=== PATIENT | female | born 1985 | race Caucasian/White ===

== ENCOUNTER 2019-12-12 00:13 | Outpatient (CLI) | payer OTHER, SELFPAY ==
[2019-12-12 18:54] LABS: SARS-CoV-2 RNA PCR Negative
== END 2019-12-12 00:14 | disposition home or self-care (01) ==
LOC: ANHCOVIDDT 00:14
PROVIDERS: Visit Provider Plastic Surgery
DX: Z01.812 Encounter for preprocedural laboratory examination (principal); Z11.59 Encounter for screening for other viral diseases
CPT/HCPCS: 87635; C9803; U0003

== ENCOUNTER 2019-12-12 08:23 | Outpatient (CLI) | payer OTHER, SELFPAY ==
--- NOTE | 2019-12-12 08:26 | ECG_ITS ---
Measurements Intervals [place] Rate: 82 P: -25 [place]: 160 QRS: 8 QRSD: 107 T: 6 QT: 372 QTc: 437 Interpretive Statements SINUS RHYTHM BASELINE ARTIFACT- I, III, AVL, AVF BORDERLINE ECG Electronically Signed On 12-12-2019 8:40:27 CDT by Bar Krishna D.O.
== END 2019-12-12 08:24 | disposition home or self-care (01) ==
LOC: ANHSURGERY 08:26
PROVIDERS: PCP Nurse Practitioner; Visit Provider Plastic Surgery
DX: I10 Essential (primary) hypertension (principal); R94.31 Abnormal electrocardiogram [ECG] [EKG]
CPT/HCPCS: 93005

== ENCOUNTER 2019-12-14 02:07 | Day surgery (SDC) | payer OTHER, SELFPAY ==
[2019-12-06 10:59] VITALS: BMI 39.1
--- NOTE | 2019-12-12 11:53 | HP_ITS ---
DATE OF SERVICE: 12/14/2019 PREOPERATIVE DIAGNOSIS: Ganglion cyst, left dorsal wrist. HISTORY: The patient is 34, patient of Adilene Berumen, Family Nurse Practitioner, who presented November 20, with a tender subcutaneous mass of the left dorsal wrist. This is approximately 1.5 cm in diameter. It is firm, rubbery and spherical with no attachments to the skin or subcutaneous tissue. It has been present now for a couple of years. It is painful with passive extension of the wrist. She wishes to get rid of it and she understands risks include scarring, numbness, infection, recurrence, anesthetic risks, itching. She would like to proceed. ALLERGIES: SHE HAS ALLERGIES SHE STATES TO SOLU-MEDROL. MEDICATIONS: Her current medication list includes: 1. Daily vitamin. 2. Vitamin D. 3. Calcium. 4. Biotin. 5. Folic acid. 6. Mercaptopurine. 7. Lialda. 8. Humira. 9. Benazepril. 10. Venlafaxine. 11. Buspirone. 12. Nexium. PRIOR SURGERIES: Include in 2017, right ankle surgery in 2004. Chronic health conditions include Crohn disease. She is a nonsmoker. REVIEW OF SYSTEMS: Otherwise is negative. FAMILY HISTORY: Noncontributory. SOCIAL HISTORY: She lives in [place]. She works for [employer] in [place]. PHYSICAL EXAMINATION: GENERAL: She is listed at 5 feet 7, weighing 255 pounds. She is alert, pleasant, and cooperative. HEENT: Unremarkable. CHEST: Clear to auscultation. HEART: Regular rate and rhythm by palpation. ABDOMEN: Soft, nontender. EXTREMITIES: Exam appears normal at 1st glance. She uses all 4 extremities well. She has the mass as noted above over the left dorsal wrist and it is tender to passive extension of the wrist. ASSESSMENT: Ganglion cyst, left dorsal wrist. PLAN: Excision of ganglion cyst, left dorsal wrist under MAC anesthetic. D I MT: Pauline
[2019-12-14] MEDS: LACTATED RINGERS 1,000 ML 30 ML IV CONT (06:25)
--- NOTE | 2019-12-14 06:54 | WPDANESEPPF ---
Anes - Initial Pre Proc Eval Procedure: Operation Date: 12/14/19 07:30 Proposed Procedures p Excision Ganglion Cyst Left Dorsal Wrist - Hai Wheeler MD Date/Time: 12/14/19 06:54 Surgeon: Hai Wheeler MD Pre Op Diagnosis: Left Dorsal Wrist Ganglion Cyst Patient Data Age: 34 Gender: F Height: 5 ft 7 in Weight: 118.1 kg Allergies Allergy/AdvReac Type Severity Reaction Status Date / Time CHRON'S MEDICATION Allergy Unknown Unknown Uncoded 12/14/19 06:00 Home Medications Medication Instructions Recorded Confirmed Type adalimumab [Humira(CF) Pen] 40 mg SUBCUT WEEKLY 12/06/19 12/14/19 History benazepril 20 mg PO DAILY 12/06/19 12/14/19 History biotin 10,000 mcg PO DAILY 12/06/19 12/14/19 History buspirone 5 mg PO BID 12/06/19 12/14/19 History calcium carbonate-vitamin D3 1 tablet PO DAILY 12/06/19 12/14/19 History [Calcium 600 with Vitamin D3] esomeprazole magnesium 20 mg PO DAILY 12/06/19 12/14/19 History folic acid 1 mg PO DAILY 12/06/19 12/14/19 History levocetirizine [Xyzal] 5 mg PO DAILY PRN 12/06/19 12/14/19 History mercaptopurine 50 mg PO DAILY 12/06/19 12/14/19 History mesalamine [Lialda] 4.8 g PO DAILY 12/06/19 12/14/19 History multivitamin 1 tablet PO DAILY 12/06/19 12/14/19 History venlafaxine 75 mg PO BID 12/06/19 12/14/19 History Patient hx anesthesia problems: none Family hx anesthesia problems: none [facility] Past Medical History Medical History (Updated 12/13/19 @ 12:50 by Josh Colunga MD) Anxiety Crohn's disease GERD (gastroesophageal reflux disease) Hypertension Anes - Eval Final PreProcedure Day of Procedure 12/14/19 06:54 Patient weight: morbidly obese Heart: regular rate and rhythm Lungs: clear to auscultation Airway: Mallampati scale class III Neurological: alert and oriented Last oral intake: >/= 8 hours ASA classification: III Emergent: no Anesthetic plan: proceed Anesthesia type and monitoring: general GIVS and standard monitoring Informed Consent: The patient's anesthetic plan and its attendant risks and benefits were discussed with the patient/family/POA. Questions were solicited and answers provided to the satisfaction of the patient/family/POA.
--- NOTE | 2019-12-14 07:05 | WPDHPUPDATE1 ---
History and Physical Update Update Date/Time: 12/14/19 07:05 History and Physical has been reviewed, including an updated exam of the patient. There are NO changes in the patient's condition. Risks, benefits, and alternatives have been discussed and questions answered. Patient agrees to proceed with procedure.
[2019-12-14 07:06] VITALS: BP 142/87; PULSE 67; RESP 16; TEMP 36.8; O2SAT 100
[2019-12-14] MEDS: LIDO 1%/EPINEPHRINE 1:100,000 20 ML VIAL 7 ML INFILTRATE (07:21)
--- NOTE | 2019-12-14 07:46 | SUR.OPER ---
EBL:5cc
[2019-12-14] MEDS: BACITRACIN OINTMENT 15 GM TUBE 1 APPLIC TOPICAL (07:50)
[2019-12-14 08:00] VITALS: BP 129/88; PULSE 69; RESP 14; O2SAT 95
--- NOTE | 2019-12-14 08:05 | PM.OP ---
Procedure Note - Brief Procedure Note - Brief Date of procedure: 12/14/19 Pre-op diagnosis: Left Dorsal Wrist Ganglion Cyst Post-op diagnosis: same Procedure performed: Excision of left dorsal wrist ganglion cyst. Anesthesia: MAC Surgeon: Hai Wheeler MD Estimated blood loss (mL): 0 Tourniquet time (min): 15 Drains: No Packing: No Pathology: none sent Complications: No immediate complications Condition: stable Disposition: same day
--- NOTE | 2019-12-14 08:18 | PM.PROC ---
Procedure Note - Detailed Date of procedure: 12/14/19 Pre-op diagnosis: Left Dorsal Wrist Ganglion Cyst Post-op diagnosis: same Procedure performed: Excision of left dorsal wrist ganglion cyst Description of procedure: The site on the patient's wrist was marked in the holding burgess. She was then taken to the operating room and placed supine on the operating table. Time-out was held and confirmed. She was given IV sedation as the extremity was prepped and draped in the usual fashion. The site was locally infiltrated with 1% lidocaine with epinephrine. The tourniquet was inflated to 250 mmHg. The transverse incision was made as marked and dissection was carried bluntly through the subcutaneous tissue past the extensor tendons to identify the cyst arising between those. This was a silvery, lucent mass that was dissected down toward its base and then opened and drained. The sac was well defined and could be followed close to its surface to the base. This was cut off at that level. This was clearly on the joint capsule. We repaired that site with a mattress suture using 3-0 Ethibond. This did not interfere with passive flexion of the wrist. The wound was then closed with 2 layers of 4-0 Monocryl closing the fascia and the dermis. The usual bandage was Coban wrap was applied the tourniquet was released and she is discharged from the operating room in stable condition she has a prescription for hydrocodone . Surgeon: Hai Wheeler MD
[2019-12-14 08:30] VITALS: BP 137/71; PULSE 69; RESP 20
[2019-12-14 08:55] VITALS: BP 137/70; PULSE 66; RESP 20
== END 2019-12-14 09:09 | disposition home or self-care (01) ==
PROVIDERS: Visit Provider Plastic Surgery
PROC: (CPT 25111; principal; 2019-12-14 07:30)
DX: M67.432 Ganglion, left wrist (principal); I10 Essential (primary) hypertension; K21.9 Gastro-esophageal reflux disease without esophagitis; K50.90 Crohn's disease, unspecified, without complications; F41.9 Anxiety disorder, unspecified; E66.01 Morbid (severe) obesity due to excess calories; Z68.41 Body mass index [BMI] 40.0-44.9, adult
CPT/HCPCS: 25111; A9270; J2250; J2405; J2704; J3010; J7120

== ENCOUNTER 2021-07-23 01:09 | Day surgery (SDC) | payer OTHER, SELFPAY ==
[2021-07-19 08:37] VITALS: BMI 43.0
--- NOTE | 2021-07-19 08:48 | PC.NURSE ---
Report to the Outpatient Waiting Room, entrance under the green pavilion located off [facility], at time 0600 on date 07/23/21. OR Time: 0730. - You will be asked a series of questions to screen for COVID 19 for your protection. - A mask is required within the hospital. - No visitors are allowed at this time. Preoperative COVID Testing Requirements: TO E-MAIL COPY OF CARD No COVID Test needed if: (proof is required; if not received patient will have Rapid Test prior to entry) - Patient has received COVID Vaccine at least 14 days prior to procedure date or - Patient has positive COVID test result within last 90 days of surgery date. COVID Test needed if above criteria is not met Patients may have clear liquids (water, carbonated beverages, clear teas, apple juice) until 3 hours prior to surgery with a maximum of 20 ounces. - No food from midnight until time of surgery Take the following medications with a SIP of water the morning of surgery: BUSPIRONE, DESVENLAFAXINE, MERCAPTOPURINE Medications to discontinue per physician: VITAMINS/SUPPLEMENTS Date to take last dose: 07/19/21 Please no make-up, nail sami, hairspray, perfume, deodorant, or body powder the day of surgery. No jewelry (including any body piercings) or valuables the day of surgery, leave them at home. Please take a shower or bath the night before, or the morning of, surgery with an antibacterial soap. Wear comfortable, loose fitting clothing. - Jewelry must be removed prior to entering the operating room. Rings and piercings that are not removed may be cut off. - The hospital will not accept responsibility for valuables. - Please leave all valuables, including medications, at home the day of surgery. If you are going home after surgery, a licensed chuck wagon driver must drive you home. - NO public transportation without another adult. - We recommend that an adult stay with you for 24 hours following discharge. - We also recommend that you do not drive, make important decision, drink alcoholic beverages, or take any drugs that were not prescribed by your health care provider for at least 24 hours after your discharge time. Follow any additional instructions given to you from your surgeon. Telephone instructions given to ANGELA GARCIA and asked if any additional questions and then verbalized understanding. Patient advised to call surgeon office or pre surgery nurse liaison [phone] if any additional questions.
[2021-07-23] VITALS (9 sets, daily range): BP systolic 135–168; BP diastolic 87–106; PULSE 57–90; RESP 16–24; TEMP 36.4–36.5; O2SAT 93–100
--- NOTE | 2021-07-23 06:14 | ECG_ITS ---
Measurements Intervals [place] Rate: 68 P: -12 [place]: 176 QRS: 12 QRSD: 102 T: 12 QT: 413 QTc: 442 Interpretive Statements SINUS RHYTHM BASELINE ARTIFACT- I, III, AVR, AVL NORMAL ECG Electronically Signed On 07-23-2021 7:41:51 [employer] by Bar Krishna D.O.
[2021-07-23 06:35] LABS: Hematocrit 37.6 % (37.0-47.0); Hemoglobin 12.1 g/dL (12.0-15.0)
--- NOTE | 2021-07-23 06:37 | WPDANESEPPF ---
Anes - Initial Pre Proc Eval Procedure: Operation Date: 07/23/21 07:30 Proposed Procedures p Hysteroscopy with Paloma Endometrial Ablation, Laparoscopic Bilateral Salpingectomy - Michael Kim MD Date/Time: 07/23/21 06:37 Surgeon: Michael Kim MD Pre Op Diagnosis: Menorrhagia, Desire Sterilization Patient Data Age: 35 Gender: F Height: 1.7 m Weight: 123.3 kg Allergies Allergy/AdvReac Type Severity Reaction Status Date / Time infliximab [From Remicade] Allergy Severe Anaphylaxis Verified 07/23/21 05:57 methylprednisolone Allergy Severe Anaphylaxis Verified 07/23/21 05:57 [From Solu-Medrol] Home Medications Medication Instructions Recorded Confirmed Type Calcium 600 with Vitamin D3 1 tablet PO DAILY 12/06/19 07/19/21 History Humira(CF) Pen 40 mg SUBCUT WEEKLY 12/06/19 07/23/21 History biotin 10,000 mcg PO DAILY 12/06/19 07/19/21 History buspirone 5 mg PO BID 12/06/19 07/23/21 History esomeprazole magnesium 20 mg PO DAILY 12/06/19 07/23/21 History folic acid 1 mg PO DAILY 12/06/19 07/23/21 History mercaptopurine 50 mg PO DAILY 12/06/19 07/23/21 History mesalamine [Lialda] 4.8 g PO DAILY 12/06/19 07/23/21 History multivitamin 1 tablet PO DAILY 12/06/19 07/23/21 History desvenlafaxine succinate 100 mg PO DAILY 07/19/21 07/19/21 History ferrous gluconate [Ferate] 240 mg PO TID 07/19/21 07/23/21 History lisinopril 30 mg PO DAILY 07/19/21 07/23/21 History Laboratory Tests 07/23/21 06:30 Hgb Pending Hct Pending Patient hx anesthesia problems: none Family hx anesthesia problems: none Results Review: All pre-operative results and documents have been reviewed as part of the pre-operative evaluation. [facility] Past Medical History Medical History (Updated 12/13/19 @ 12:50 by Josh Colunga MD) Anxiety Crohn's disease GERD (gastroesophageal reflux disease) Hypertension Social History Social History Smoking packs per day: 1 Smoking cigarettes per day: 20.0 Years smoked: 3 Smoking pack-years: 3.00 Smoking status: Former smoker Tobacco type: cigarettes Smoking end date: 06/15/08 Alcohol intake: never Substance use: never Substance use type: does not use Living arrangements: with family Spiritual care concerns: No Anes - Eval Final PreProcedure Day of Procedure 07/23/21 06:37 Patient weight: morbidly obese Heart: regular rate and rhythm Lungs: clear to auscultation and normal air movement Airway: Mallampati scale class II Neurological: alert and oriented Last oral intake: >/= 8 hours ASA classification: III Emergent: no Anesthetic plan: proceed Anesthesia type and monitoring: general ETT and standard monitoring Results Review: All pre-operative results and documents have been reviewed as part of the pre-operative evaluation. Informed Consent: The patient's anesthetic plan and its attendant risks and benefits were discussed with the patient/family/POA. Questions were solicited and answers provided to the satisfaction of the patient/family/POA.
[2021-07-23] MEDS: LACTATED RINGERS 1,000 ML 30 ML IV CONT ×2 (06:49→08:40)
[2021-07-23] MEDS: ACETAMINOPHEN 500 MG TABLET 1000 MG PO (06:49)
[2021-07-23] MEDS: KETOROLAC 15 MG/ML VIAL (*BKC) IV PUSH (06:50)
--- NOTE | 2021-07-23 07:05 | WPDHPUPDATE1 ---
History and Physical Update Update Date/Time: 07/23/21 07:05 History and Physical has been reviewed, including an updated exam of the patient. There are NO changes in the patient's condition. Risks, benefits, and alternatives have been discussed and questions answered. Patient agrees to proceed with procedure.
--- NOTE | 2021-07-23 08:24 | SUR.OPER ---
blayne start 0823.
[2021-07-23] MEDS: fentaNYL CITRATE INJ (*CRX) 100 MCG/2 ML VIAL 25 MCG IV PUSH ×4 (09:06→09:31)
--- NOTE | 2021-07-23 09:40 | SUR.PHASEI ---
[id number] wayne about patient bp, he's okay with itmshe wasn't far off from it in preop. patient didn't take lisinopril this morning due to anesthesia orders
[2021-07-23] MEDS: oxyCODONE HCL (*CRX) 5 MG TAB IR PO (10:17)
--- NOTE | 2021-07-24 10:00 | P.OP_ITS ---
Procedure Note - Detailed Date of Procedure 07/24/21 Pre-op Diagnosis Menorrhagia, Desire Sterilization Post-op Diagnosis same Procedure Performed Laparoscopic bilateral salpingectomy with endometrial ablation and hysteroscopy. Surgeon Michael Kim MD Anesthesia general Indications Menorrhagia, female sterilization Description of Procedure Patient was taken the operating room. She has prepped draped in the dorsal lithotomy position after induction of general anesthesia. A 5 mm abdominal incision was made in left upper quadrant of the abdomen with scalpel. A 5 mm trocars inserted the intra-abdominal cavity under direct visualization of the scope. Pneumoperitoneum was achieved. A 5 mm periumbilical incision was made using a scalpel on the abdominal scan. A 5 mm trocar was inserted the intra- abdominal cavity under visualization of the scope. A 5 mm incision made left lower quadrant of the abdomen. A 5 mm trocar was inserted the intra-abdominal cavity and direct visualization of the scope. The bilateral fallopian tubes were removed. The paratubal tissue in the area of the uterus was grasped with the LigaSure cautery and transected after being cauterized. The paratubal tissue from the ovary to the uterine cornu was cauterized and transected with LigaSure cautery. This was all done in a bilateral fashion. The tube was transected at the area of the uterine cornua and the tubes was removed through the 5 mm trocar site. The pneumoperitoneum was reduced. The trocars were removed. The skin was closed with subcuticular 4 Monocryl and covered with Dermabond. Our attention was then turned to the endometrial ablation portion of the p rocedure. A speculum was placed in the vagina. The cervix was grasped with a tenaculum. The cervix was dilated to approximately 8 mm with Caballero dilators. The hysteroscope was inserted. And the below findings were noted. All of the intrauterine surfaces were curettaged with a medium-size curette and the specimens were collected. Measurements of the cervix were taken using the uterine sound and the hysteroscope. The intrauterine cavity measurements were entered into the handpiece. The device was inserted into the intrauterine cavity and the array was expanded. The balloon cuff was inflated. When an adequate seal was formed the safety and energy cycles were initiated and completed. The array was collapsed, the balloon was deflated. The insert was withdrawn. The hysteroscope was reinserted and a well desiccated intrauterine cavity was observed. The patient was taken recovery room stable condition. Sponge lap and needle counts were correct x2. She tolerated the procedure well. Pathology yes Complications No immediate complications Condition stable Disposition PACU
== END 2021-07-23 11:10 | disposition home or self-care (01) ==
PROVIDERS: Anesthesiology; PCP Nurse Practitioner; Visit Provider Obstetrics & Gynecology
PROC: 0UDB8ZZ Extraction of Endometrium, Via Natural or Artificial Opening Endoscopic (ICD-10-PCS; CPT 58558; principal; 2021-07-23 07:30)
DX: Z30.2 Encounter for sterilization (principal); N92.0 Excessive and frequent menstruation with regular cycle; F41.9 Anxiety disorder, unspecified; K50.90 Crohn's disease, unspecified, without complications; K21.9 Gastro-esophageal reflux disease without esophagitis; I10 Essential (primary) hypertension; E66.01 Morbid (severe) obesity due to excess calories; Z68.41 Body mass index [BMI] 40.0-44.9, adult; Z87.891 Personal history of nicotine dependence
CPT/HCPCS: 58661; 58563; 36415; 85014; 85018; 88302; 93005; A9270; J0330; J1100; J1885; J2250; J2405; J2704; J2710; J3010; J7030; J7120